=== PATIENT | male | born 1995 | race Caucasian/White ===

== ENCOUNTER 2017-12-19 11:20 | Emergency (ER) | payer OTHER ==
[~2017-12-19] VITALS: Ht 172.7 cm; Wt 110.3 kg
[~2017-12-19 11:20] MED LIST: ADDERALL XR 3030 MG PO; CLONIDINE HCL0.2 MG PO; FLEXERIL10 MG PO; FLUOXETINE HCL10 M1 PO; GABAPENTIN600 MG PO; LIDOCAINE700 MG TD; MELOXICAM15 MG PO; MOBIC15 MG PO; MOTRIN800 MG PO; NAPROSYN500 MG PO; PERCOCET 5/31 TABLET PO; VALIUM5 MG PO
[2017-12-19] MEDS ORDERED: VALIUM5 MG PO (12:12)
[2017-12-19] MEDS ORDERED: NAPROXEN500 MG PO (12:12)
[2017-12-19 12:31] VITALS: BP 138/70
== END 2017-12-19 12:32 | disposition home or self-care (01) ==
LOC: EME 11:20
DX: M54.2 Cervicalgia (principal); M62.838 Other muscle spasm; M43.6 Torticollis; F17.200 Nicotine dependence, unspecified, uncomplicated
CPT/HCPCS: 99281; 99283